=== PATIENT | male | born 1955 | race Hispanic/Latino ===

== ENCOUNTER 2020-03-22 15:27 | Emergency (ER) | payer MEDICARE, BC, OTHER ==
[2020-03-22 15:54] LABS: #Basophils 0.1 thou/uL (0.0-0.2); #Lymphocytes 0.8 thou/uL (1.20-3.40); #Monocytes 0.4 thou/uL (0.11-0.59); #Neutrophils 10.2 thou/uL (1.40-6.50); %Basophils 0.9 % (0.0-1.0); %Lymphocytes 6.7 % (21.0-51.0); %Monocytes 3.4 % (0.0-10.0); Hemoglobin 14.3 g/dL (14.0-18.0); Mean Corpuscular Hemoglobin 29.6 pg (27.0-31.0); Mean Corpuscular Volume 92.6 fL (78.0-98.0); Platelet Count 219 thou/uL (130-400); RBC Distribution Width 11.7 % (11.5-14.5); Red Blood Cell (RBC) Count 4.83 mill/uL (4.70-6.10); White Blood Cell (WBC) Count 11.5 thou/uL (4.8-10.8)
[2020-03-22 16:35] LABS: ALT (SGPT) 28 U/L (8-55); AST (SGOT) 29 U/L (5-34); Albumin 3.5 g/dL (3.4-4.8); Alkaline Phosphatase 62 U/L (40-110); Anion Gap 12 mmol/L (10-20); BUN (Urea Nitrogen) 10 mg/dL (8.4-25.7); Bilirubin, Total 0.7 mg/dL (0.2-1.2); Calc. Creatinine Clearance 0 mL/min (70-130); Calcium 8.5 mg/dL (7.8-10.44); Carbon Dioxide 26 mmol/L (23-31); Chloride 97 mmol/L (98-107); Estimated GFR-MDRD 72; Globulin 3.5 g/dL (2.4-3.5); Glucose 152 mg/dL (80-115); Sodium 132 mmol/L (136-145)
--- NOTE | 2020-03-22 17:01 | RAD ---
PORTABLE UPRIGHT FRONTAL CHEST: Date: 03-22-2020 Comparison: None History: Positive Covid test. Nausea, vomiting, and diarrhea. FINDINGS: There is no pneumothorax, pleural fluid, lobar consolidation or alveolar edema. There is minimal nicole hilar and bibasilar interstitial prominence, significance uncertain without comparison imaging. This could be chronic in nature or be related to Covid pneumonia. IMPRESSION: Mild perihilar and bibasilar interstitial prominence as above. No focal consolidation or alveolar britt ma. POS: GRACIELADI
[2020-03-22] MEDS ORDERED: Potassium Chloride 20 MEQ TAB ONE (18:10)
== END 2020-03-22 18:15 | disposition home or self-care (01) ==
LOC: ERS 15:27
DX: U07.1 COVID-19 (principal); E87.6 Hypokalemia; I10 Essential (primary) hypertension
CPT/HCPCS: 71045; 80053; 84484; 85025; 93005; 96360

== ENCOUNTER 2020-03-27 04:29 | Inpatient (IN) | payer MEDICARE, BC, OTHER ==
[2020-03-27] MEDS ORDERED: Azithromycin 500 MG VIAL ONE (05:06)
[2020-03-27] MEDS ORDERED: cefTRIAXone\\ROCEPHIN 2 GM VIAL ONE (05:06)
[2020-03-27 05:20] LABS: #Basophils 0.1 thou/uL (0.0-0.2); #Eosinphils 0.1 thou/uL (0.0-0.7); #Lymphocytes 1.1 thou/uL (1.20-3.40); #Monocytes 0.3 thou/uL (0.11-0.59); %Basophils 0.8 % (0.0-1.0); %Eosinophils 0.7 % (0.0-10.0); %Lymphocytes 9.3 % (21.0-51.0); %Monocytes 2.8 % (0.0-10.0); %Neutrophils 86.4 % (42.0-75.0); Hemoglobin 14.7 g/dL (14.0-18.0); Mean Corpuscular HGB CONC 33.5 g/dL (32.0-36.0); Mean Corpuscular Hemoglobin 31.8 pg (27.0-31.0); Mean Corpuscular Volume 94.9 fL (78.0-98.0); Mean Platelet Volume 7.4 fL (7.4-10.4); Platelet Count 387 thou/uL (130-400); RBC Distribution Width 11.7 % (11.5-14.5); White Blood Cell (WBC) Count 11.6 thou/uL (4.8-10.8)
[2020-03-27 05:44] LABS: ALT (SGPT) 48 U/L (8-55); AST (SGOT) 29 U/L (5-34); Albumin 3.4 g/dL (3.4-4.8); Alkaline Phosphatase 66 U/L (40-110); Anion Gap 15 mmol/L (10-20); BUN (Urea Nitrogen) 14 mg/dL (8.4-25.7); Bilirubin, Total 0.8 mg/dL (0.2-1.2); Calc. Creatinine Clearance 0 mL/min (70-130); Calcium 8.7 mg/dL (7.8-10.44); Carbon Dioxide 22 mmol/L (23-31); Chloride 106 mmol/L (98-107); Estimated GFR-MDRD 75; Globulin 3.7 g/dL (2.4-3.5); Glucose 128 mg/dL (80-115); Potassium 3.1 mmol/L (3.5-5.1); Protein, Total 7.1 g/dL (5.8-8.1); Sodium 140 mmol/L (136-145)
[2020-03-27 05:47] LABS: Bilirubin Negative (Negative); Blood, Urine Negative (Negative); Clarity Clear (Clear); Glucose, Urine (Dipstick) Normal (Negative); Ketone, Urine Negative (Negative); Leukocyte 25 Leu/uL (Negative); Nitrite Negative (Negative); Protein, Urine (Dipstick) 50 mg/dL (Neg-Trace); RBC/HPF 0-3 HPF (0-3); Specific Gravity, Urine 1.029 (1.002-1.036); Squamous Epithelial 0-3 HPF (0-3); Urobilinogen Greater than 12 mg/dL (Less than 2); pH, Urine 6.5 (5.0-9.0)
[2020-03-27 05:56] LABS: Bacteria/HPF 1+ HPF (None Seen)
[2020-03-27 06:04] LABS: CKMB 0.5 ng/mL (0-6.6)
--- NOTE | 2020-03-27 07:52 | RAD ---
XR Chest 1 View Portable HISTORY: Dyspnea patient tested positive for COVID 19 COMPARISON: 03/22/2020 FINDINGS: Interval development of bilateral peripheral infiltrates is seen. The heart size is normal. No pneumothoraces or pleural effusions are identified. IMPRESSION: Findings are consistent with Covid19 pneumonia
[2020-03-27] MEDS ORDERED: Albuterol 200 PUFF (6.7GM INHALER) INH PRN (07:55)
--- NOTE | 2020-03-27 09:02 | HP ---
HISTORY OF PRESENT ILLNESS: [facility] patient. He thinks it is Dr. Reno. Referred to the Hospitalist Service by [facility] for COVID pneumonia. The patient states he has been sick for 2 weeks, cough, low-grade fever, mild sweats, diarrhea, loss of taste and smell, some shortness of breath with exertion. PAST MEDICAL HISTORY: Hypertension. MEDICATIONS: He takes unknown blood pressure medicine one pill a day. ALLERGIES: NONE. PAST SURGICAL HISTORY: Bilateral knee replacements. FAMILY HISTORY: Mother, father, sibs; no diabetes or other inheritable diseases. SOCIAL HISTORY: , next of kin for decision making. No tobacco. No alcohol. Full code status. REVIEW OF SYSTEMS: GENERAL: No dizziness or fainting or headache. EYES: Wears glasses. No double vision or blurred vision. EARS, NOSE, AND THROAT: No ear pain or drainage. No nasal bleeding. No trouble swallowing. CARDIAC: No pressure chest pain, orthopnea, or paroxysmal nocturnal dyspnea. RESPIRATIONS: See present illness. No history of asthma. GASTROINTESTINAL: Some diarrhea. No melena. No blood in his stools. No abdominal pain, nausea, or vomiting. GENITOURINARY: No hematuria, dysuria, or nocturia. MUSCULOSKELETAL: No pain or swelling in his arms or legs. NEUROLOGIC: No strokes, seizures, or focal weakness. PSYCHIATRIC: No anxiety or depression. SKIN: No bruising, bleeding, or rash. HEME/LYMPH: No tender or swollen lymph nodes in axilla, inguinal, or cervical area. NEUROLOGIC: The patient is alert, Swiss-speaking male, cooperative. PHYSICAL EXAMINATION: VITAL SIGNS: Blood pressure 166/92, pulse 107, respirations 27, temperature 99.6. HEAD, EYES, EARS, NOSE, AND THROAT: Revealed pupils are equal, round, and reactive to light. Extraocular movements are intact. Sclerae are white. Tympanic membranes are clear. Nose is clear. Mucous membranes are wet. NECK: Supple without jugular venous distention, adenopathy, or thyromegaly. CHEST: Clear to auscultation and percussion except for posterior some scant fine rales. No wheezes. No egophony. HEART: Had a regular rate and rhythm. First and second heart sounds are clear. There are no appreciated murmurs or gallops. ABDOMEN: Soft. Bowel sounds are normal. There is no hepatosplenomegaly. No mass. No rebound. No bruits. EXTREMITIES: Reveal no cyanosis, clubbing, or edema. PULSES: Carotid, radial, femoral, and dorsalis pedis pulses intact and symmetric. SKIN: Warm and dry. HEME/LYMPH: No tender or swollen lymph nodes in axilla, inguinal, or cervical area. NEUROLOGIC: Cranial nerves 2 through 12 are intact. Deep tendon reflexes symmetric. Moves all extremities. IMAGING: Chest x-ray, diffuse fluffy infiltrates compatible with a viral pneumonia. EKG, none available. We will find an foreign language interpreter. Chest x-ray was interpreted by myself. LABORATORY DATA: There is no reported COVID test in the computer, but I am told he is COVID positive. Urine was clear, 4 to 6 white cells, 0 to 3 red cells. His electrolytes; sodium 140, potassium 3.1, chloride 106, CO2 of 22, BUN 14, creatinine 0.99, blood sugar 128. Lactic acid 1.5. Liver function tests normal. Troponin minimally elevated 0.03. BNP 30. White count 11.6 with a lymphopenia, hemoglobin 14.7, platelet count 387,000. ADMITTING DIAGNOSES: 1. COVID. 2. Pneumonia, viral. 3. History of hypoxia in the emergency room with acute respiratory failure with hypoxemia. 4. Hypertension. PLAN: Admit. Ferritin, CRP, D-dimer have been ordered. O2 will be used as needed. We will discuss with ID further. The patient has been put in necessary isolation. Job ID: [id number]
[2020-03-27] MEDS ORDERED: Ondansetron PF 4 MG/2 ML Vial IVP PRN (09:26)
[2020-03-27] MEDS ORDERED: Zolpidem Tartrate 5 MG TAB PO PRN (09:26)
[2020-03-27] MEDS ORDERED: Acetaminophen 325 MG TAB PO PRN (09:26)
[2020-03-27] MEDS ORDERED: Enoxaparin Sodium 40 MG/0.4 ML SYRINGE SC SCH (09:30)
[2020-03-27 09:57] VITALS: BMI 29.5
[2020-03-27] MEDS: D5 1/2 NS w/40 mEq KCL 1,000 ML IV SCH ×2 (10:43→21:30)
[2020-03-27] MEDS ORDERED: Metoprolol Tartrate 25 MG TAB PO SCH (11:00)
[2020-03-27] MEDS ORDERED: Terazosin HCl 5 MG CAP PO SCH (11:00)
[2020-03-27] MEDS ORDERED: Aspirin 325 mg Enteric Coated Tablet PO SCH (11:00)
[2020-03-27] MEDS ORDERED: Losartan 25 MG TAB PO SCH (11:00)
[2020-03-27] MEDS ORDERED: Hydrochlorothiazide 25 MG TAB PO SCH (11:00)
[2020-03-27] MEDS ORDERED: Zinc Sulfate 220 MG CAP PO SCH (11:45)
[2020-03-27] MEDS: Ascorbic Acid 500 mg Chewable Tablet PO SCH ×2 (16:04→21:27)
[2020-03-27] MEDS ORDERED: Labetalol HCl 100 MG/20 ML VIAL ONE (16:05)
[2020-03-27] MEDS: Benzonatate 100 MG CAP PO PRN (16:25)
[2020-03-27] MEDS: Metoprolol Tartrate 25 MG TAB PO SCH (21:26)
[2020-03-27] MEDS: Enoxaparin Sodium 40 MG/0.4 ML SYRINGE SC SCH (21:27)
[2020-03-27] MEDS: Dexamethasone 10 MG/ML VIAL SLOW IVP SCH (21:27)
[2020-03-28] MEDS: Benzonatate 100 MG CAP PO PRN (00:29)
[2020-03-28] MEDS ORDERED: Azithromycin 500 MG in Sodium Chloride 0.9% 250 ML 250 ML IVPB SCH (05:00)
[2020-03-28] MEDS ORDERED: cefTRIAXone\\ROCEPHIN 1 GM in Sodium Chloride 0.9% 100 ML IVPB SCH (05:00)
[2020-03-28 06:06] LABS: #Basophils 0.2 thou/uL (0.0-0.2); #Lymphocytes 0.5 thou/uL (1.20-3.40); #Monocytes 0.2 thou/uL (0.11-0.59); #Neutrophils 7.8 thou/uL (1.40-6.50); %Eosinophils 0.5 % (0.0-10.0); %Lymphocytes 5.4 % (21.0-51.0); %Monocytes 1.8 % (0.0-10.0); %Neutrophils 90.2 % (42.0-75.0); Mean Corpuscular HGB CONC 33.4 g/dL (32.0-36.0); Mean Corpuscular Hemoglobin 31.4 pg (27.0-31.0); Mean Platelet Volume 7.6 fL (7.4-10.4); Platelet Count 385 thou/uL (130-400); RBC Distribution Width 11.7 % (11.5-14.5); Red Blood Cell (RBC) Count 4.44 mill/uL (4.70-6.10); White Blood Cell (WBC) Count 8.7 thou/uL (4.8-10.8)
[2020-03-28 06:26] LABS: Anion Gap 11 mmol/L (10-20); BUN (Urea Nitrogen) 12 mg/dL (8.4-25.7); Calc. Creatinine Clearance 102 mL/min (70-130); Calcium 8.8 mg/dL (7.8-10.44); Carbon Dioxide 23 mmol/L (23-31); Chloride 103 mmol/L (98-107); Estimated GFR-MDRD 84; Glucose 195 mg/dL (80-115); Potassium 4.4 mmol/L (3.5-5.1); Sodium 133 mmol/L (136-145)
[2020-03-28] MEDS: Enoxaparin Sodium 40 MG/0.4 ML SYRINGE SC SCH (07:46)
[2020-03-28] MEDS: Dexamethasone 10 MG/ML VIAL SLOW IVP SCH (07:46)
[2020-03-28] MEDS: Metoprolol Tartrate 25 MG TAB PO SCH (07:48)
[2020-03-28] MEDS: Ascorbic Acid 500 mg Chewable Tablet PO SCH ×2 (07:48→14:44)
[2020-03-28] MEDS ORDERED: Terazosin HCl 5 MG CAP PO SCH (09:00)
[2020-03-28] MEDS ORDERED: Losartan 25 MG TAB PO SCH (09:00)
[2020-03-28] MEDS ORDERED: Zinc Sulfate 220 MG CAP PO SCH (09:00)
[2020-03-28] MEDS ORDERED: Hydrochlorothiazide 25 MG TAB PO SCH (09:00)
[2020-03-28] MEDS ORDERED: Aspirin 325 mg Enteric Coated Tablet PO SCH (09:00)
[2020-03-28] MEDS ORDERED: Enoxaparin Sodium 40 MG/0.4 ML SYRINGE SC SCH (09:00)
[2020-03-28] MEDS: D5 1/2 NS w/40 mEq KCL 1,000 ML IV SCH (11:02)
[2020-03-28 12:24] LABS: SARS-CoV-2 MS2 Positive; SARS-CoV-2 N Gene Positive; SARS-CoV-2 S Gene Positive; SARS-CoV-2 orf1ab Positive
[2020-03-28 14:35] VITALS: BP 138/82; TEMP 98.4
--- NOTE | 2020-03-28 18:57 | CON ---
DATE OF CONSULTATION: 03/28/2020 REASON FOR CONSULTATION: COVID pneumonia. HISTORY OF PRESENT ILLNESS: A 65-year-old with history of hypertension, who lives in [place] with his . His became ill with COVID before him. She had a mild illness and he got sick around 03/14, maybe the beginning of March. He has been ill now for about 2 weeks and is progressively getting worse. He decided to come to the hospital and continues to cough. He is tachypneic and had some sweats. He had anorexia now, that seems to be improving a little bit. Denies any headaches. No abdominal pain or diarrhea. No genitourinary symptoms. He did have some diarrhea at the beginning. MEDICAL HISTORY: Hypertension. ALLERGIES: NONE. SURGICAL HISTORY: Knee replacements. FAMILY HISTORY: COVID pneumonia in his . CURRENT MEDICATIONS: 1. Inhaler. 2. Aspirin. 3. Benzonatate. 4. He is on Decadron for some reason, he is on 10 mg q.12 hours, unclear why he is on this heavier dose. PHYSICAL EXAMINATION: VITAL SIGNS: Temperature 101 when he came in on and he is now 98.4, BP 130 /82, pulse 63, respirations 18, and O2 saturation 98. SKIN: Normal. There is no lymphadenopathy. HEENT: Ocular movements conjugate. Oral cavity normal. NECK: Supple. LUNGS: With scattered inspiratory crackles, right and left lung. HEART: S1 and S2. Regular rate. ABDOMEN: Soft, not distended or tender. No ascites. No bladder distention. EXTREMITIES: No joint inflammatory activity. Moves extremities equally. LABORATORY DATA: Sodium is 133 and creatinine 0.9. Ferritin is 573 and the CRP is 11.98, we only have one measurement of each. D-dimer 3.24. Chest x-ray with bilateral diffuse pulmonary infiltrates. ASSESSMENT: 1. Hypertension. 2. [id number] COVID pneumonia. He is not requiring oxygen supplementation at this point, but he is coughing and he has diffuse pneumonitis and there is a potential for further deterioration. I have asked the nurse to walk the patient back and forth to the bathroom twice and measure his pulse oximetry. If there is a lot of desaturation, then I would advise canceling discharge planning. If it is normal and if the O2 sats remain acceptable above 94, then I think it is okay to discharge him on oral Decadron 6 mg daily. He will be at risk for readmission due to the protracted nature of Covid-related inflammatory process. Job ID: [id number] [facility]
--- NOTE | 2020-03-29 04:59 | DIS ---
DATE OF ADMISSION: 03/27/2020 DATE OF DISCHARGE: 03/28/2020 REASON FOR HOSPITALIZATION: Shortness of breath. SIGNIFICANT FINDINGS: The patient was found to have COVID-positive serology on PCR in addition to COVID pneumonia. PROCEDURES PERFORMED AND TREATMENTS RENDERED: The patient was admitted to the medical unit for maximum medical therapy. The patient was started on all appropriate medications for COVID including Decadron, breathing treatments, and cough aids. The patient improved from maximum medical therapy. The patient was seen and evaluated by Infectious Disease specialist, Dr. Sutherland, please see full consultation note for details. I evaluated the patient on 03/28/2020. The patient is saturating adequately on room air without the assistance of supplemental oxygen. He is eating his meals regularly. He has been ambulating without difficulty, though he does get mildly short of breath with severe exercise. The patient was recommended safe for discharge home with close followup in the outpatient setting. SPECIFIC INSTRUCTIONS FOR THE PATIENT/FAMILY: 1. The patient is recommended to complete a full course of oral medications for COVID-19. 2. The patient is recommended to continue all other home medications as directed. 3. The patient is recommended to follow up with primary care physician in the next 5 to 7 days. 4. The patient is recommended to return to acute care hospital immediately if signs or symptoms return, worsen, or any other new symptoms occur. Of note this patient had a faster than anticipated recovery, resulting in him being discharged more quickly than anticipated. TIME SPENT: Greater than 36 minutes spent coordinating care and discharge process for this patient. Job ID: [id number] MTDD
[2020-03-29] MEDS ORDERED: Dexamethasone 10 MG/ML VIAL SLOW IVP SCH (09:00)
--- NOTE | 2020-04-02 03:58 | PQF ---
CLINICAL DOCUMENTATION CLARIFICATION FORM: Dear : ____Anil Nguyen Date / Time: ____04/02/2020 Please exercise your independent, professional judgment in responding to the clarification form. Clinical indicators are provided on the bottom of this form for your review Please check appropriate box(es) to clarify if the following diagnosis has been ruled in our ruled out: Acute respiratory failure with hypoxia [ XX ] Ruled in diagnosis [ ] Continue to treat [ XX ] Resolved [ ] Ruled out diagnosis [ ] Improving [ ] Cannot rule out diagnosis [ ] Other diagnosis [ ] Unable to determine Physician Signature: Date/Time: For continuity of documentation, please document condition throughout progress notes and discharge summary. Thank You To be completed by CDI/Coding staff for physician review: w Present w Clinical Indicators - Signs / Symptoms / Labs w Results and Location in Medical Record w [ x] w History of hypoxia in the emergency room with acute respiratory failure with hypoxia w H&P, 03/27, Matias Deng MD w [ x] w RR:24H, 22H w RR, 03/27, Vital signs w [ x] w Lungs with scattered inspiratory crackles, right and left lung w Consultation report, 03/28 w [ x] w Dyspnea, Hypoxia w ED record, 03/27, Cayetano Church MD w Present w Risk Factors w Results and Location in Medical Record w [ x] w COVID Positive w DS, 03/28, Patrick Ma DO w [ x ] w Pneumonia w DS, 03/28, Patrick Ma DO w w w w w w w Present w Treatments w Results and Location in Medical Record w [ x] w Albuterol Sulfate INH w MAR, 03/27, w w w w w w w w w CDS/Stain Applicator Signature: Tk Rajput Phone #: [phone] Date/Time:_ 04/02/2020 This is a permanent part of the Medical Record [facility]
--- NOTE | 2020-04-02 04:18 | PQF ---
CLINICAL DOCUMENTATION CLARIFICATION FORM: Dear : __Patrick Ma Date / Time: _04/02/2020__ Please exercise your independent, professional judgment in responding to the clarification form. Clinical indicators are provided on the bottom of this form for your review Please check appropriate box(es): [ XX ] Sepsis [ ] Localized infection without sepsis [ ] Other diagnosis [ ] Unable to determine In addition, please specify: Present on Admission (POA): [ XX ] Yes [ ] No [ ] Unable to determine Physician Signature: Date/Time: For continuity of documentation, please document condition throughout progress notes and discharge summary. Thank You To be completed by CDI/Coding staff for physician review: Present Clinical Indicators - Signs / Symptoms / Labs Results and Location in Medical Record [ ] Pateint initially tachycardic, tachypneic and hypoxic ED record, 03/27, Lynnette Monteiro MD [ ] Temp: 99.4, 98.9H ED record, 03/27, Lynnette Monteiro MD [ ] Pulse: 115, 101 ED record, 03/27, Lynnette Monteiro MD [ ] WBC: 11.6H Laboratory report, 03/27 Present Risk Factors Results and Location in Medical Record [ ] COVID Pneumonia DS, 03/28, Elsi Nguyen DO Present Treatments Results and Location in Medical Record [ ] Rocephin.IV MAR, 03/27 [ ] CDS/Network Technical Analyst Signature: Tk Rajput Phone #: [phone] Date/Time:_04/02/2020 This is a permanent part of the Medical Record [facility]
== END 2020-03-28 18:55 | disposition home or self-care (01) | DRG 871 ==
LOC: ERS 04:29 → T4-B 09:27
PROVIDERS: ADMIT Internal Medicine; ATTEND Internal Medicine
PROC: 8E0ZXY6 Isolation (ICD-10-PCS; principal; 2020-03-27)
DX: A41.89 Other specified sepsis (principal); U07.1 COVID-19; J12.89 Other viral pneumonia; J96.01 Acute respiratory failure with hypoxia; I10 Essential (primary) hypertension; Z96.653 Presence of artificial knee joint, bilateral
CPT/HCPCS: 36415; 71045; 80048; 80053; 81003; 81015; 82553; 82728; 83605; 83880; 84484; 85025; 85379; 86140; 87040; 87635; 93005; 96365; 96367; J0456; J0696; J1100; J1650; J3480; U0003

== ENCOUNTER 2020-04-01 10:01 | Observation (INO) | payer MEDICARE, BC, OTHER ==
[~2020-04-01 10:01] MED LIST: Iopamidol-370 76% 500 ML 1 ML ONE
[2020-04-01 11:01] LABS: #Monocytes 0.7 thou/uL (0.11-0.59); %Basophils 0.1 % (0.0-1.0); %Eosinophils 0.3 % (0.0-10.0); %Lymphocytes 6.2 % (21.0-51.0); %Monocytes 4.2 % (0.0-10.0); %Neutrophils 89.2 % (42.0-75.0); Hemoglobin 14.5 g/dL (14.0-18.0); Mean Corpuscular HGB CONC 32.6 g/dL (32.0-36.0); Mean Corpuscular Hemoglobin 30.8 pg (27.0-31.0); Mean Corpuscular Volume 94.4 fL (78.0-98.0); Platelet Count 449 thou/uL (130-400); RBC Distribution Width 11.8 % (11.5-14.5); Red Blood Cell (RBC) Count 4.69 mill/uL (4.70-6.10); White Blood Cell (WBC) Count 15.7 thou/uL (4.8-10.8)
--- NOTE | 2020-04-01 11:14 | RAD ---
XR Chest 1 View Portable HISTORY: Dyspnea covid19 pneumonia COMPARISON: 03/27/2020 FINDINGS: The heart size stable. Bilateral patchy peripheral infiltrates are again seen. No pneumotho races or pleural effusions are identified. IMPRESSION: Stable COVID 19 pneumonia
[2020-04-01 11:20] LABS: ALT (SGPT) 48 U/L (8-55); AST (SGOT) 20 U/L (5-34); Albumin 3.1 g/dL (3.4-4.8); Alkaline Phosphatase 64 U/L (40-110); Anion Gap 13 mmol/L (10-20); BUN (Urea Nitrogen) 21 mg/dL (8.4-25.7); Bilirubin, Total 0.5 mg/dL (0.2-1.2); Calc. Creatinine Clearance 0 mL/min (70-130); Calcium 8.8 mg/dL (7.8-10.44); Carbon Dioxide 20 mmol/L (23-31); Chloride 105 mmol/L (98-107); Estimated GFR-MDRD 78; Globulin 3.4 g/dL (2.4-3.5); Glucose 133 mg/dL (80-115); Potassium 3.6 mmol/L (3.5-5.1); Protein, Total 6.5 g/dL (5.8-8.1); Sodium 134 mmol/L (136-145)
--- NOTE | 2020-04-01 12:58 | CT ---
EXAM: CTA of the chest HISTORY: Covid positive with dyspnea COMPARISON: None TECHNIQUE: Multiple contiguous axial images were obtained a CTA of the chest with contrast per pulmon serjio embolism protocol. 3-D oblique MIP reformats and direct coronal reformats were performed. FINDINGS: HEART: Normal in size without focal cardiac abnormality. PULMONARY ARTERIES: Normal in caliber without filling defects to suggest pulmonary emboli. MEDIASTINUM: Slightly prominent bilateral hilar and mediastinal lymph nodes. LUNGS: Multifocal peripheral infiltrates are consistent with Covid pneumonia PLEURAL SPACE: No pleural effusion or pneumothorax. CHEST WALL SOFT TISSUES: Unremarkable VISUALIZED OSSEOUS STRUCTURES: Degenerative changes in the spine. VISUALIZED SUBDIAPHRAGMATIC STRUCTURES: Unremarkable. Status post cholecystectomy. IMPRESSION: 1. No evidence of pulmonary thromboembolism 2. Multifocal Covid pneumonia
[2020-04-01] MEDS ORDERED: Ondansetron PF 4 MG/2 ML Vial IVP PRN (16:45)
[2020-04-01] MEDS ORDERED: Ondansetron ODT 4 MG TAB SL PRN (16:45)
[2020-04-01] MEDS ORDERED: Acetaminophen 325 MG TAB PO PRN (16:52)
[2020-04-01] MEDS ORDERED: Benzonatate 100 MG CAP PO PRN (16:59)
[2020-04-01] MEDS ORDERED: Enoxaparin Sodium 40 MG/0.4 ML SYRINGE SC SCH (17:00)
[2020-04-01 17:07] VITALS: BMI 29.2
[2020-04-01] MEDS ORDERED: Albuterol 200 PUFF (6.7GM INHALER) INH PRN (17:15)
--- NOTE | 2020-04-01 18:10 | PRG ---
DATE OF SERVICE: 04/01/2020 SUBJECTIVE: I had seen Mr. Schrader on the and felt that he had [id number] pneumonia and that there was a potential for further deterioration, so we will only hold his back in the hospital now. He came to the emergency room after being told to be readmitted by his PCP because of worsening dyspnea. Appears quite stable, feeling comfortable, little coughing, Probably just developed anxiety from transient decrease in Osats at home without supplementation. OBJECTIVE: VITAL SIGNS: Pulse was 91, respirations 16, O2 saturations were 93 % on 2 L oxygen supplementation. Inspiratory crackles are noted on the lung examination and a chest CT was done, which showed multifocal COVID pneumonia. Currently, his temperature 98.7, his breathing of 24 times a minute, saturating 96% on 3 L. LUNGS: With bibasilar inspiratory crackles. HEART: S1 and S2. Regular rate. ABDOMEN: Soft, not distended. NEUROLOGIC: Moves all extremities equally. LABORATORY DATA: White cell count 15.7, hemoglobin 14, platelets 449. D-dimer 2.46 and his previous ferritin was 573 and a C-reactive protein was 11.98 needs to be repeated. He is currently on metoprolol and aspirin. ASSESSMENT AND DISCUSSION: Hypertension, [id number] COVID pneumonia with readmission. The patient will be continued on Decadron and this is more than 2 weeks now since start of illness. He appears quite stable and probably just needs O2 supplementation to be arranged for him to go back home. No other active treatment required. Job ID: [id number] MTDD
--- NOTE | 2020-04-01 18:51 | HP ---
PRIMARY CARE PHYSICIAN: Arline Reno MD CHIEF COMPLAINT: Difficulty breathing. HISTORY OF PRESENT ILLNESS: The patient is a 65-year-old male, past medical history significant for hypertension and COVID-19. He presents to the ER today for a low O2 saturation at home. The patient was diagnosed on 03/27/2020 with COVID-19. He has been sick approximately two weeks and was actually admitted into the hospital on 03/27. He was later discharged the next day. At that time, he was able to eat meals and ambulate without difficulty. He gets short of breath with severe exercise. However, he was able to have a conversation and ambulate without assistance of supplemental oxygen. He was discharged with Decadron, breathing treatments, and cough aids. Today, the patient states that he was told by his physician to check his O2 saturation. At home, it was approximately 88% to 90%, so his primary care physician stated he should come to the emergency department. He does have a dry cough, but denies any fevers. The patient has been self isolating at home. Today in the ER, they completed blood work, EKG, had chest and thorax CTA, and a chest x-ray. PAST MEDICAL HISTORY: Hypertension. PAST SURGICAL HISTORY: Bilateral knee replacements. ALLERGIES: NO KNOWN DRUG ALLERGIES. MEDICATIONS: 1. Zinc 220 mg p.o. daily. 2. Terazosin 10 mg p.o. daily. 3. Protonix 40 mg p.o. daily. 4. Metoprolol tartrate 25 mg p.o. b.i.d. 5. Losartan potassium 100 mg p.o. daily. 6. Hydrochlorothiazide 12.5 mg p.o. daily. 7. Decadron 6 mg p.o. daily. He has four days left in that prescription. 8. Tessalon Perles 200 mg p.o. q.8 hours p.r.n. 9. Aspirin 81 mg p.o. daily. 10. Vitamin C 500 mg p.o. t.i.d. 11. Albuterol 2 puffs inhaled q.4 hours p.r.n. SOCIAL HISTORY: He is . He lives with his . Denies any tobacco, alcohol, or drug use. FAMILY HISTORY: Noncontributory to this. REVIEW OF SYSTEMS: All other review of systems are negative unless noted in the HPI. PHYSICAL EXAMINATION: VITAL SIGNS: Temp 98.7, pulse 78, respiratory rate 24, O2 saturation 96% on 3 L, blood pressure 130/71. HEENT: PERRLA. Extraocular movements intact. White sclerae. Moist mucous membranes. NECK: Supple. No lymphadenopathy. CHEST: Clear to auscultation. Faint wheezes. Symmetrical chest rise. Dry cough. CARDIOVASCULAR: Regular rate and rhythm. No murmurs, gallops, or rubs. ABDOMEN: Soft, nondistended, bowel sounds normal. EXTREMITIES: No cyanosis, clubbing, or edema. SKIN: Warm, dry, and intact. PSYCH: Normal affect. Normal behavior. IMPRESSION AND PLAN: 1. Hypoxia with known COVID-19 diagnosis. The patient was started on O2 at 3 L. If unable to wean him at point of discharge, we will have case management involvement for home oxygen. We will monitor patient's vital signs throughout the night. Provide p.r.n. antitussives and any medications if he becomes febrile. Does not seem to be a bacterial element to this at this time, seems as COVID related still. We will continue his home medications along with his steroids time. 2. Hypertension. We will monitor patient's vital signs and provide home medications and any p.r.n. antihypertensive medications if needed. 3. GI prophylaxis in place with Protonix. 4. Deep venous thrombosis prophylaxis with Lovenox. 5. The patient wishes to be full code. His surrogate decision maker is his . The patient has been discussed with Dr. Cassidy. Job ID: [id number]
[2020-04-01] MEDS: Metoprolol Tartrate 25 MG TAB PO SCH (19:30)
[2020-04-01] MEDS: Ascorbic Acid 500 mg Chewable Tablet PO SCH (19:30)
[2020-04-01] MEDS ORDERED: Famotidine 20 MG TAB PO SCH (21:00)
[2020-04-02 05:13] LABS: #Eosinphils 0.1 thou/uL (0.0-0.7); #Lymphocytes 1.2 thou/uL (1.20-3.40); #Monocytes 0.6 thou/uL (0.11-0.59); #Neutrophils 10.1 thou/uL (1.40-6.50); %Basophils 0.2 % (0.0-1.0); %Eosinophils 0.5 % (0.0-10.0); %Lymphocytes 9.9 % (21.0-51.0); %Monocytes 4.8 % (0.0-10.0); %Neutrophils 84.6 % (42.0-75.0); Hemoglobin 14.2 g/dL (14.0-18.0); Mean Corpuscular HGB CONC 31.7 g/dL (32.0-36.0); Mean Corpuscular Hemoglobin 30.2 pg (27.0-31.0); Mean Corpuscular Volume 95.1 fL (78.0-98.0); Mean Platelet Volume 7.7 fL (7.4-10.4); Platelet Count 471 thou/uL (130-400); RBC Distribution Width 11.9 % (11.5-14.5); Red Blood Cell (RBC) Count 4.69 mill/uL (4.70-6.10)
[2020-04-02 05:37] LABS: Anion Gap 11 mmol/L (10-20); BUN (Urea Nitrogen) 19 mg/dL (8.4-25.7); Calc. Creatinine Clearance 105 mL/min (70-130); Calcium 8.3 mg/dL (7.8-10.44); Carbon Dioxide 24 mmol/L (23-31); Chloride 103 mmol/L (98-107); Estimated GFR-MDRD Greater than 90; Glucose 105 mg/dL (80-115); Sodium 134 mmol/L (136-145)
[2020-04-02] MEDS: Metoprolol Tartrate 25 MG TAB PO SCH (07:44)
[2020-04-02] MEDS: Ascorbic Acid 500 mg Chewable Tablet PO SCH ×2 (07:45→14:52)
[2020-04-02] MEDS ORDERED: Losartan 25 MG TAB PO SCH (09:00)
[2020-04-02] MEDS ORDERED: Dexamethasone 4 MG TAB PO SCH (09:00)
[2020-04-02] MEDS ORDERED: Terazosin HCl 5 MG CAP PO SCH (09:00)
[2020-04-02] MEDS ORDERED: Aspirin Chewable 81 MG TAB PO SCH (09:00)
[2020-04-02] MEDS ORDERED: Hydrochlorothiazide 25 MG TAB PO SCH (09:00)
[2020-04-02] MEDS ORDERED: Zinc Sulfate 220 MG CAP PO SCH (09:00)
[2020-04-02 15:01] VITALS: BP 110/60; TEMP 98
--- NOTE | 2020-04-03 00:18 | DIS ---
DATE OF ADMISSION: 04/01/2020 DATE OF DISCHARGE: 04/02/2020 HOSPITAL COURSE: Mr. Schrader is a 65-year-old male, who was recently diagnosed with COVID pneumonia and was discharged. However, shortly after discharge, he was having worsening shortness of breath, so he called his primary care physician, presented to the ED. In the ED, he was found to be in the low 90s and high 80s with exertion. He was admitted for observation and was breathing and saturating well on 2 L nasal cannula. He was discharged home with home oxygen after he received extensive education regarding the possibly prolonged disease course and indications to return to the ED. PHYSICAL EXAMINATION: VITAL SIGNS: Blood pressure 110/60, pulse 72, respiratory rate 20, and oxygen saturation 96% on 2 L of nasal cannula, and temperature 98 Fahrenheit. GENERAL APPEARANCE: Lying comfortably in bed. Awake and alert. HEENT: PERRL. EOMI. Moist mucosa. CARDIAC: Regular rate and rhythm. No murmurs, gallops, or rubs. LUNGS: Clear to auscultation bilaterally. No wheezing, rales, or rhonchi. ABDOMEN: Soft, nondistended, and nontender. Normal bowel sounds. MEDICATION LIST: New medications, no new medications. Continued medications; 1. Terazosin. 2. Pantoprazole. 3. Hydrochlorothiazide. 4. Metoprolol. 5. Losartan. 6. Albuterol. 7. Vitamin C. 8. Benzonatate. 9. Dexamethasone. 10. Zinc. 11. Aspirin. Modified medications, no modified medication. Discontinued medications, no discontinued medication. Job ID: [id number]
== END 2020-04-02 16:29 | disposition home or self-care (01) ==
LOC: ERS 10:01 → 2SW 14:15
PROVIDERS: ADMIT Internal Medicine; ATTEND Internal Medicine
DX: U07.1 COVID-19 (principal); J12.89 Other viral pneumonia; I10 Essential (primary) hypertension; Z79.82 Long term (current) use of aspirin; Z79.899 Other long term (current) drug therapy
CPT/HCPCS: 71045; 71275; 80048; 80053; 83605; 83880; 84145; 84484; 85025 ×2; 85379; 87040; 93005; 96372; 99285; G0378 ×3; 36415; J1650; Q9967

== ENCOUNTER 2022-04-02 07:10 | Emergency (ER) | payer MEDICARE, BC ==
[2022-04-02 08:04] LABS: #Eosinphils 0.1 thou/uL (0.0-0.7); #Lymphocytes 1.7 thou/uL (1.20-3.40); #Neutrophils 8.1 thou/uL (1.40-6.50); %Basophils 0.1 % (0.0-1.0); %Eosinophils 0.8 % (0.0-10.0); %Lymphocytes 15.7 % (21.0-51.0); %Neutrophils 74.4 % (42.0-75.0); Hemoglobin 14.5 g/dL (14.0-18.0); Mean Corpuscular HGB CONC 32.8 g/dL (32.0-36.0); Mean Corpuscular Hemoglobin 32.3 pg (27.0-31.0); Mean Corpuscular Volume 98.3 fL (78.0-98.0); Mean Platelet Volume 8.8 fL (7.4-10.4); Platelet Count 234 thou/uL (130-400); RBC Distribution Width 12.4 % (11.5-14.5); White Blood Cell (WBC) Count 10.8 thou/uL (4.8-10.8)
[2022-04-02 08:13] LABS: ALT (SGPT) 38 U/L (8-55); AST (SGOT) 25 U/L (5-34); Albumin 4.1 g/dL (3.4-4.8); Alkaline Phosphatase 80 U/L (40-110); Anion Gap 18 mmol/L (10-20); BUN (Urea Nitrogen) 18 mg/dL (8.4-25.7); Bilirubin, Total 1.1 mg/dL (0.2-1.2); Calc. Creatinine Clearance 0 mL/min (70-130); Carbon Dioxide 22 mmol/L (23-31); Chloride 100 mmol/L (98-107); Estimated GFR 75; Globulin 3.1 g/dL (2.4-3.5); Glucose 139 mg/dL (80-115); Potassium 3.3 mmol/L (3.5-5.1); Protein, Total 7.2 g/dL (5.8-8.1); Sodium 137 mmol/L (136-145)
[2022-04-02 08:21] LABS: INR-International Normal Ratio 1.1; Prothrombin Time 13.9 sec (12.0-14.7)
[2022-04-02 08:22] LABS: PTT 37.8 sec (22.9-36.1)
[2022-04-02] MEDS ORDERED: Potassium Chloride 20 MEQ TAB ONE (09:00)
== END 2022-04-02 11:09 | disposition home or self-care (01) ==
LOC: ERS 07:10
DX: J20.9 Acute bronchitis, unspecified (principal); E87.6 Hypokalemia; R94.31 Abnormal electrocardiogram [ECG] [EKG]; I10 Essential (primary) hypertension; Z20.822 Contact with and (suspected) exposure to COVID-19
CPT/HCPCS: 71045; 80053; 83605; 83880; 84484; 85025; 85610; 85730; 87040; 93005; 99284; U0003; U0005

== ENCOUNTER 2022-06-29 10:42 | Outpatient (CLI) | payer MEDICARE, BC | END 2022-06-29 10:43 | disposition home or self-care (01) | LOC: BICULT 10:42 | PROVIDERS: ATTEND Internal Medicine Cardiovascular Disease | DX: E04.1 Nontoxic single thyroid nodule (principal) | CPT/HCPCS: 76536 ==

== ENCOUNTER 2022-08-16 12:27 | Day surgery (SDC) | payer MEDICARE, BC ==
[2022-08-15 13:38] VITALS: BMI 31.0
[2022-08-16] MEDS ORDERED: Lidocaine 2% PF 5 ML VIAL ONE (13:01)
[2022-08-16 13:50] VITALS: BP 127/68; TEMP 98.1
== END 2022-08-16 13:34 | disposition home or self-care (01) ==
LOC: ULT 12:27
PROVIDERS: ATTEND Specialist
PROC: 0G9H3ZX Drainage of Right Thyroid Gland Lobe, Percutaneous Approach, Diagnostic (ICD-10-PCS; principal; 2022-08-16)
DX: E04.1 Nontoxic single thyroid nodule (principal)
CPT/HCPCS: 10005; 88173; 88305; J2001

== ENCOUNTER 2022-09-13 11:59 | Outpatient (CLI) | payer MEDICARE, BC ==
[2022-09-13 13:38] LABS: Hemoglobin 14.3 g/dL (13.5-17.5)
[2022-09-13 13:39] LABS: Anion Gap 14 mmol/L (10-20); BUN (Urea Nitrogen) 17 mg/dL (8.4-25.7); Calc. Creatinine Clearance 0 mL/min (70-130); Carbon Dioxide 23 mmol/L (23-31); Chloride 106 mmol/L (98-107); Estimated GFR 69; Glucose 137 mg/dL (80-115); Potassium 3.7 mmol/L (3.5-5.1); Sodium 139 mmol/L (136-145)
== END 2022-09-13 12:00 | disposition home or self-care (01) ==
LOC: LABBT 11:59
PROVIDERS: ATTEND Specialist
DX: Z01.818 Encounter for other preprocedural examination (principal); E07.89 Other specified disorders of thyroid
CPT/HCPCS: 80048; 85014; 85018; 93005; 93010

== ENCOUNTER 2022-09-15 07:21 | Observation (INO) | payer BC, MEDICARE ==
[2022-09-15] MEDS ORDERED: EPINEPHrine 1 MG/ML AMP ONE (09:38)
[2022-09-15] MEDS ORDERED: Lidocaine 1% (PF) 30 ML VIAL ONE (09:38)
[2022-09-15] MEDS ORDERED: Fentanyl 250 MCG/5 ML VIAL ONE (09:43)
[2022-09-15] MEDS ORDERED: Ondansetron HCl/PF 4 MG/2 ML Vial IVP PRN (12:10)
[2022-09-15] MEDS ORDERED: Promethazine HCl 25 MG/ML VIAL IM PRN (12:10)
[2022-09-15] MEDS ORDERED: Fentanyl 100 MCG/2 ML VIAL ONE (13:30)
[2022-09-15] MEDS ORDERED: PROPOFOL 200 MG/20 ML VIAL ONE (14:46)
[2022-09-15] MEDS ORDERED: Lidocaine 1% PF 5 ML VIAL ONE (14:46)
[2022-09-15] MEDS ORDERED: NEOSTIGMINE 3 MG/3 ML SYR 3 MG/3 ML SYRINGE ONE (14:46)
[2022-09-15] MEDS ORDERED: Dexamethasone 20 MG/5 ML VIAL ONE (14:46)
[2022-09-15] MEDS ORDERED: Ondansetron PF 4 MG/2 ML Vial ONE (14:46)
[2022-09-15] MEDS ORDERED: PHENYLEPHRINE-NS 100 MCG/ML 10 ML SYRINGE ONE (14:46)
[2022-09-15] MEDS ORDERED: Glycopyrrolate 0.2 MG/ML 5 ML SYRINGE ONE (14:46)
[2022-09-15] MEDS ORDERED: ePHEDrine 50 MG/ML VIAL ONE (14:46)
[2022-09-15] MEDS ORDERED: HYDROcodone/Acetaminophen 7.5/325 mg Tablet PO PRN ×2 (18:11→18:12)
[2022-09-15] MEDS ORDERED: Morphine 2 MG/ML VIAL SLOW IVP PRN (18:13)
[2022-09-15] MEDS ORDERED: Ondansetron PF 4 MG/2 ML Vial IVP PRN (18:14)
[2022-09-15] MEDS ORDERED: CALCIUM GLUC 1 GM/NS 50 ML 1 GM in Premix Bag 1 BAG IVPB SCH (18:30)
[2022-09-15] MEDS: traMADol HCl 50 MG TAB PO PRN (21:10)
[2022-09-15 21:21] VITALS: BMI 36.9
[2022-09-16] MEDS: traMADol HCl 50 MG TAB PO PRN (05:21)
[2022-09-16] MEDS ORDERED: Terazosin HCl 5 MG CAP PO SCH (09:00)
[2022-09-16] MEDS ORDERED: Hydrochlorothiazide 25 MG TAB PO SCH (09:00)
[2022-09-16] MEDS ORDERED: Losartan 25 MG TAB PO SCH (09:00)
[2022-09-16] MEDS ORDERED: Metoprolol Tartrate 25 MG TAB PO SCH (09:00)
[2022-09-16 17:04] VITALS: BP 167/86; TEMP 98.3
== END 2022-09-16 15:54 | disposition home or self-care (01) ==
LOC: SDC 07:21 → SURG A 12:12
PROVIDERS: ADMIT Specialist; ATTEND Specialist
PROC: 0GTG0ZZ Resection of Left Thyroid Gland Lobe, Open Approach (ICD-10-PCS; principal; 2022-09-15)
PROC: 0GTH0ZZ Resection of Right Thyroid Gland Lobe, Open Approach (ICD-10-PCS; 2022-09-15)
DX: D34 Benign neoplasm of thyroid gland (principal); E04.9 Nontoxic goiter, unspecified; I10 Essential (primary) hypertension; N40.0 Benign prostatic hyperplasia without lower urinary tract symptoms; N52.9 Male erectile dysfunction, unspecified; K21.9 Gastro-esophageal reflux disease without esophagitis; E66.9 Obesity, unspecified; Z68.36 Body mass index [BMI] 36.0-36.9, adult; Z86.16 Personal history of COVID-19; Z79.899 Other long term (current) drug therapy
CPT/HCPCS: 36415; 82310; 88307; 88331; C1776; C1889; J0171; J1100; J2001; J2405; J2704; J3010; J3480; J3490; J7042

== ENCOUNTER 2023-10-19 13:46 | Outpatient (CLI) | payer MEDICARE, BC ==
[2023-10-19 15:02] LABS: #Basophils 0.1 10x3/uL (0.0-0.2); #Eosinphils 0.2 10x3/uL (0.0-0.5); #Monocytes 0.7 10x3/uL (0.0-1.1); %Eosinophils 1.5 % (0.0-6.0); %Lymphocytes 20.9 % (18.0-47.0); %Monocytes 6.4 % (0.0-10.0); %Neutrophils 69.8 % (40.0-75.0); Hematocrit 39.7 % (38.8-50.0); Hemoglobin 13.7 g/dL (13.5-17.5); Mean Corpuscular HGB CONC 34.5 g/dL (32.0-36.0); Mean Corpuscular Hemoglobin 31.5 pg (27.0-33.0); Mean Corpuscular Volume 91.3 fl (81.2-95.1); Mean Platelet Volume 10.9 fl (7.4-10.4); Platelet Count 275 10x3/uL (150-450); RBC Distribution Width 13.2 % (11.5-14.5); Red Blood Cell (RBC) Count 4.35 10x6/uL (4.32-5.72); White Blood Cell (WBC) Count 10.1 10x3/uL (3.5-10.5)
[2023-10-19 15:04] LABS: Prothrombin Time 10.3 sec (9.5-12.1)
[2023-10-19 15:06] LABS: Anion Gap 12 mmol/L (10-20); BUN (Urea Nitrogen) 14 mg/dL (8.4-25.7); Calc. Creatinine Clearance 0 mL/min (70-130); Calcium 8.3 mg/dL (7.8-10.44); Carbon Dioxide 25 mmol/L (23-31); Chloride 106 mmol/L (98-107); Estimated GFR 75; Glucose 116 mg/dL (80-115); Potassium 3.7 mmol/L (3.5-5.1); Sodium 139 mmol/L (136-145)
== END 2023-10-19 13:47 | disposition home or self-care (01) ==
LOC: LABBT 13:46
PROVIDERS: ATTEND Orthopaedic Surgery
DX: Z01.818 Encounter for other preprocedural examination (principal); M17.12 Unilateral primary osteoarthritis, left knee; Z96.652 Presence of left artificial knee joint
CPT/HCPCS: 80048; 85025; 85610; 87081; 93005; 93010

== ENCOUNTER 2023-10-24 07:01 | Observation (INO) | payer MEDICARE, BC ==
[2023-10-24] MEDS ORDERED: Tranexamic Acid 1,000 MG/10 ML VIAL ONE (07:17)
[2023-10-24] MEDS ORDERED: Sodium Chloride 0.9% 100 ML ONE ×2 (07:17→09:44)
[2023-10-24] MEDS ORDERED: Vancomycin (BATCH) 1.5 GM/300 ML BAG ONE (07:17)
[2023-10-24] MEDS ORDERED: Midazolam HCl 2 mg/2 ml Vial ONE (08:21)
[2023-10-24] MEDS ORDERED: fentaNYL 50 mcg/mL 1 mL Vial ONE ×2 (08:21→10:19)
[2023-10-24] MEDS ORDERED: Bupivacaine PF 0.5% 30 ML VIAL ONE ×2 (08:21→09:37)
[2023-10-24] MEDS ORDERED: CEFAZOLIN 2 GM VIAL ONE (09:44)
[2023-10-24] MEDS ORDERED: Acetaminophen 325 MG TAB PO PRN (09:45)
[2023-10-24] MEDS ORDERED: Promethazine HCl 25 MG/ML VIAL IM PRN ×2 (09:45→11:15)
[2023-10-24] MEDS ORDERED: Ondansetron PF 4 MG/2 ML Vial IVP PRN (09:45)
[2023-10-24] MEDS ORDERED: fentaNYL 50 mcg/mL 1 mL Vial SLOW IVP PRN (09:45)
[2023-10-24] MEDS ORDERED: Bupivacaine HCl 0.5%/Epinephrine 1:200,000/PF 30 ml Vial ONE (09:50)
[2023-10-24] MEDS ORDERED: Lidocaine 1% PF 5 ML VIAL ONE (09:52)
[2023-10-24] MEDS ORDERED: PROPOFOL 40 ML ONE (09:52)
[2023-10-24] MEDS ORDERED: traMADol HCl 50 MG TAB PO PRN ×2 (10:15)
[2023-10-24] MEDS ORDERED: Ropivacaine 0.2% 550 ML 550 ML NERVE BLCK SCH (10:15)
[2023-10-24] MEDS ORDERED: PHENYLEPHRINE-NS 100 MCG/ML 10 ML SYRINGE ONE (10:34)
[2023-10-24] MEDS ORDERED: ePHEDrine Sulfate 50 MG/10 ML VIAL ONE (10:36)
[2023-10-24] MEDS ORDERED: PROPOFOL 20 ML ONE ×2 (10:39)
[2023-10-24] MEDS ORDERED: Ondansetron HCl/PF 4 MG/2 ML Vial IVP PRN (11:15)
[2023-10-24] MEDS ORDERED: HYDROmorphone 2 MG/ML VIAL SLOW IVP PRN (11:15)
[2023-10-24 16:48] VITALS: BMI 36.1
[2023-10-24] MEDS: Ketorolac Tromethamine 30 MG (1 mL) VIAL IVP SCH (16:54)
[2023-10-24] MEDS: Sodium Chloride 0.9% 1,000 ML IV SCH (16:54)
[2023-10-24] MEDS: CEFAZOLIN 2 GM in Sodium Chloride 0.9% 100 ML IVPB SCH (17:05)
[2023-10-24] MEDS: HYDROcodone/Acetaminophen 10/325 mg Tablet PO PRN ×2 (17:07→23:52)
[2023-10-24] MEDS ORDERED: Metoprolol Tartrate 25 MG TAB PO SCH (21:00)
[2023-10-24] MEDS: Metoprolol Tartrate 50 MG TAB PO SCH (21:28)
[2023-10-24] MEDS: Ferrous Gluconate 324 MG TAB PO SCH (21:28)
[2023-10-24] MEDS: diphenhydrAMINE 25 MG CAP PO PRN (21:28)
[2023-10-24] MEDS: Aspirin 81 mg Enteric Coated Tablet PO SCH (21:28)
[2023-10-24] MEDS: Senokot S 8.6-50 MG TAB PO SCH (21:28)
[2023-10-24] MEDS: Zolpidem Tartrate 5 MG TAB PO PRN (21:28)
[2023-10-25 04:40] LABS: Hemoglobin 10.7 g/dL (14.0-18.0); Mean Corpuscular HGB CONC 33.4 g/dL (32.0-36.0); Mean Corpuscular Hemoglobin 31.5 pg (27.0-31.0); Mean Corpuscular Volume 94.1 fl (78.0-98.0); Mean Platelet Volume 10.1 fL (7.4-10.4); Platelet Count 208 10x3/uL (130-400); RBC Distribution Width 13.3 % (11.5-14.5); White Blood Cell (WBC) Count 7.4 10x3/uL (4.8-10.8)
[2023-10-25 07:33] VITALS: BP 132/66; TEMP 98.7
[2023-10-25] MEDS ORDERED: TERAZOSIN HCL 10 MG PO SCH (09:00)
[2023-10-25] MEDS ORDERED: Non-Formulary Item 1 EACH (Losartan Potassium [Losartan Potassium] 100 MG Tablet) PO SCH (09:00)
[2023-10-25] MEDS ORDERED: Non-Formulary Item 1 EACH (Hydrochlorothiazide [Hydrochlorothiazide] 12.5 MG Capsule) PO SCH (09:00)
[2023-10-25] MEDS: Terazosin HCl 5 MG CAP PO SCH (09:21)
[2023-10-25] MEDS: Losartan 25 MG TAB PO SCH (09:22)
[2023-10-25] MEDS: Hydrochlorothiazide 25 MG TAB PO SCH (09:22)
[2023-10-25] MEDS: Levothyroxine 150 MCG TAB PO SCH (09:23)
[2023-10-25] MEDS: Multivitamin W/ Minerals 1 TAB PO SCH (09:33)
== END 2023-10-25 12:38 | disposition home or self-care (01) ==
LOC: SDC 07:01 → SURG B 16:32
PROVIDERS: ADMIT Orthopaedic Surgery; ATTEND Orthopaedic Surgery
PROC: 0SRD0JZ Replacement of Left Knee Joint with Synthetic Substitute, Open Approach (ICD-10-PCS; principal; 2023-10-24)
DX: M17.0 Bilateral primary osteoarthritis of knee (principal); I10 Essential (primary) hypertension; K21.9 Gastro-esophageal reflux disease without esophagitis; E66.9 Obesity, unspecified; Z68.36 Body mass index [BMI] 36.0-36.9, adult; Z90.49 Acquired absence of other specified parts of digestive tract; Z86.16 Personal history of COVID-19; Z79.899 Other long term (current) drug therapy
CPT/HCPCS: 27447; 73560; 85027; 97110 ×2; 97116 ×2; 97530; A4306; C1776; J3010; J3370; 36415; J0665; J1885; J2250; J2704; J2795; J3490; J7050

== ENCOUNTER 2024-09-07 09:46 | Emergency (ER) | payer MEDICARE, BC ==
[2024-09-07] MEDS ORDERED: Ketorolac Tromethamine 30 MG (1 mL) VIAL ONE (11:27)
== END 2024-09-07 11:43 | disposition home or self-care (01) ==
LOC: ERS 09:46
DX: R07.89 Other chest pain (principal); I10 Essential (primary) hypertension; Z79.899 Other long term (current) drug therapy
CPT/HCPCS: 71046; 93005; J1885; 96372